=== PATIENT | female | born 1980 | race Caucasian/White ===

== ENCOUNTER 2021-01-30 11:54 | Emergency (ER) | payer BC, OTHER ==
[~2021-01-30] VITALS: Ht 170.2 cm; Wt 104.5 kg
[2021-01-30] MEDS ORDERED: predniSONE 20 mg tablet PO ONE (12:20)
[2021-01-30] MEDS ORDERED: ipratropium/albuterol 3ml nebule NEB ONE (12:20)
[2021-01-30 12:41] LABS: BASOPHILS % (AUTO) 0.2 % (0-1); EOSINOPHILS % (AUTO) 0.1 % (0-6); HEMATOCRIT 38.6 % (35.0-45.0); HEMOGLOBIN 13.2 g/dl (12.0-16.0); LYMPHOCYTES # (AUTO) 0.4 X10'3 (1.1-4.8); MEAN CORPUSCULAR HGB CONC 34.1 g/dL (33.0-36.5); MEAN CORPUSCULAR VOLUME 90.8 FL (78-98); MEAN PLATELET VOLUME 7.9 FL (7.4-10.4); MONOCYTES # (AUTO) 0.3 X10'3 (0-0.9); MONOCYTES % (AUTO) 12.4 % (2-12); NEUTROPHILS # (AUTO) 1.6 X10'3 (1.8-7.7); NEUTROPHILS % (AUTO) 70.3 % (42-75); PLATELET COUNT 203 X10'3 (140-440); RED BLOOD COUNT 4.25 X10'6 (4.20-5.60); WHITE BLOOD COUNT 2.3 X10'3 (4.5-11.0)
[2021-01-30 12:54] LABS: ALANINE AMINOTRANSFERASE 41 U/L (12-78); ALBUMIN 3.9 G/DL (3.4-5.0); ALKALINE PHOSPHATASE 67 IU/L (46-116); ANION GAP 12 (8-16); ASPARTATE AMINO TRANSFERASE 30 U/L (10-37); BILIRUBIN,TOTAL 0.2 MG/DL (0.1-1.0); BLOOD UREA NITROGEN 12 MG/DL (7-18); BUN/CREATININE RATIO 13.5 (6.6-38.0); CALCIUM 8.6 MG/DL (8.5-10.1); CHLORIDE 101 MMOL/L (99-107); CREATININE 0.89 MG/DL (0.40-0.90); GLUCOSE 91 MG/DL (70-104); POTASSIUM 3.9 MMOL/L (3.5-5.1); SODIUM 136 MMOL/L (135-145); TOTAL CARBON DIOXIDE 22.7 MMOL/L (24-32); eGFR 70 ML/MIN
[2021-01-30] MEDS ORDERED: ondansetron 4mg rapidly disintigrating tab PO ONE (13:10)
[2021-01-30] MEDS ORDERED: PRED20TA PO (13:22)
[2021-01-30] MEDS ORDERED: ONDA4TAB6 PO (13:22)
[2021-01-30] MEDS ORDERED: ALBU8HFA PO (13:22)
[2021-01-30 13:31] LABS: TOTAL CELLS COUNTED 100
[2021-01-30 13:34] LABS: PLATELET ESTIMATE NORMAL
[2021-01-30 13:48] VITALS: BP 148/93
== END 2021-01-30 13:49 | disposition home or self-care (01) ==
LOC: ER 11:55
DX: J45.901 Unspecified asthma with (acute) exacerbation (principal); Z88.5 Allergy status to narcotic agent; Z88.8 Allergy status to other drugs, medicaments and biological substances; Z79.899 Other long term (current) drug therapy
CPT/HCPCS: 71045; 80053; 83880; 84484; 85007; 85025; 93005; 94640; 99285; J7512; 94760

== ENCOUNTER 2021-02-01 14:52 | Emergency (ER) | payer BC, OTHER ==
[~2021-02-01] VITALS: Ht 170.2 cm; Wt 104.5 kg
[~2021-02-01 14:52] MED LIST: ALBU8HFA PO; ONDA4TAB6 PO; PRED20TA PO
--- NOTE | 2021-02-01 15:15 | NUR ---
PT BEGAN SAYING SHE FELT LIKE SHE WAS GOING TO PASS OUT IMMEDIATELY AFTER TRIAGE, CALLED FOR A W/C TO TAKE PT TO A ROOM. AFTER PT WAS IN HALLWAY TO GO TO EKG ROOM, PT SLUMPED TOWARDS THE BACK OF THE CHAIR, THEN BECAME RIGID BRIEFLY AND ARCHED BACK TOWARDS THE TOP OF THE CHAIR. PT SLID DOWN NEARLY OUT OF THE CHAIR AND HAD TO BE LIFTED BACK IN WITH ASSIST OF 3 ER STAFF. PT THEN TAKEN DIRECTLY TO ER BED 16 FOR INTERVENTIONS AFTER CAROTID PULSE LOCATED
[2021-02-01 15:34] LABS: BASOPHILS % (AUTO) 0.4 % (0-1); EOSINOPHILS % (AUTO) 0 % (0-6); HEMATOCRIT 40.5 % (35.0-45.0); HEMOGLOBIN 13.9 g/dl (12.0-16.0); LYMPHOCYTES # (AUTO) 0.9 X10'3 (1.1-4.8); LYMPHOCYTES % (AUTO) 21.9 % (21-51); MEAN CORPUSCULAR HEMOGLOBIN 30.7 PG (27.0-31.0); MEAN CORPUSCULAR HGB CONC 34.2 g/dL (33.0-36.5); MEAN CORPUSCULAR VOLUME 89.8 FL (78-98); MEAN PLATELET VOLUME 7.6 FL (7.4-10.4); MONOCYTES # (AUTO) 0.3 X10'3 (0-0.9); MONOCYTES % (AUTO) 6.4 % (2-12); NEUTROPHILS % (AUTO) 71.3 % (42-75); PLATELET COUNT 200 X10'3 (140-440); RED BLOOD COUNT 4.51 X10'6 (4.20-5.60); RED CELL DISTRIBUTION WIDTH 12.9 % (11.5-14.5); WHITE BLOOD COUNT 4.2 X10'3 (4.5-11.0)
[2021-02-01 15:51] LABS: ALANINE AMINOTRANSFERASE 82 U/L (12-78); ALBUMIN 3.9 G/DL (3.4-5.0); ALBUMIN/GLOBULIN RATIO 0.9 (1.1-1.5); ALKALINE PHOSPHATASE 67 IU/L (46-116); ANION GAP 15 (8-16); ASPARTATE AMINO TRANSFERASE 62 U/L (10-37); BILIRUBIN,TOTAL 0.4 MG/DL (0.1-1.0); BLOOD UREA NITROGEN 13 MG/DL (7-18); BUN/CREATININE RATIO 13.3 (6.6-38.0); CALCIUM 8.6 MG/DL (8.5-10.1); CHLORIDE 99 MMOL/L (99-107); CREATININE 0.98 MG/DL (0.40-0.90); GLUCOSE 125 MG/DL (70-104); POTASSIUM 3.2 MMOL/L (3.5-5.1); SODIUM 135 MMOL/L (135-145); TOTAL CARBON DIOXIDE 21.1 MMOL/L (24-32); TOTAL PROTEIN 8.2 G/DL (6.4-8.2); eGFR 62 ML/MIN
[2021-02-01] MEDS ORDERED: potassium chloride 10mEq ER tablet PO STA (17:54)
[2021-02-01] MEDS ORDERED: diphenhydrAMINE 25mg capsule PO ONE (17:55)
[2021-02-01] MEDS ORDERED: potassium Cl 20 mEq SR tablet PO STA (17:56)
--- NOTE | 2021-02-01 19:08 | NUR ---
Pt requested warm blanket and was informed that she was positive for COVID 19.
[2021-02-01] MEDS ORDERED: POTA20PA40 PO (20:05)
[2021-02-01] MEDS ORDERED: BENZ-16 PO (20:05)
[2021-02-01 20:30] VITALS: BP 143/92
== END 2021-02-01 20:32 | disposition home or self-care (01) ==
LOC: ER 14:52
DX: U07.1 COVID-19 (principal); R42 Dizziness and giddiness; J45.909 Unspecified asthma, uncomplicated; Z88.8 Allergy status to other drugs, medicaments and biological substances; Z79.899 Other long term (current) drug therapy
CPT/HCPCS: 36415; 71250; 80053; 82948; 85025; 87635; 93005; 99285; C9803; Q0163